=== PATIENT | female | born 1950 | race Caucasian/White ===

== ENCOUNTER → 2016-09-20 | Outpatient (CLI) | payer OTHER ==
[~2016-09-20] MED LIST: ACET-62 PO; AMIO200T7 PO; APIX5TAB PO; FURO40TA5 PO; LANS15CA5 PO; LISI10TA7 PO; METO25TA6 PO; POTA-81 PO; SITA100T12 PO
== END ==
LOC: WC.BC 10:24
DX: Z12.31 Encounter for screening mammogram for malignant neoplasm of breast (principal)
CPT/HCPCS: 77063; G0202